=== PATIENT | male | born 1990 | race Caucasian/White ===

== ENCOUNTER 2021-01-21 10:43 | Emergency (ER) | payer OTHER ==
[~2021-01-21] VITALS: Ht 172.7 cm; Wt 59.1 kg
[2021-01-21 10:48] VITALS: Ht 172.7 cm; Wt 59.1 kg
[2021-01-21 10:59] VITALS: BP 134/86
[2021-01-21] MEDS ORDERED: ZANAFLEX4 MG (11:01)
[2021-01-21] MEDS ORDERED: VOLTAREN75 MG (11:03)
[2021-01-21] MEDS ORDERED: HYDROCODON-ACET15 ML PO (11:03)
[2021-01-21] MEDS ORDERED: ARTHROTEC 501 TAB.EC PO (12:07)
== END 2021-01-21 12:29 | disposition home or self-care (01) ==
LOC: D.ER 10:43
DX: S20.212A Contusion of left front wall of thorax, initial encounter (principal); V89.2XXA Person injured in unspecified motor-vehicle accident, traffic, initial encounter; Y93.9 Activity, unspecified; Y92.9 Unspecified place or not applicable